=== PATIENT | female | born 1935 | race Caucasian/White ===

== ENCOUNTER 2017-02-10 18:27 | Inpatient (IN) ==
[2017-02-10] MEDS ORDERED: SODIUM CHLORIDE 0.9% 2,300 ML IV ONE (19:12)
[2017-02-10 20:35] LABS: Basophils % 0.3 % (0.0-0.8); Eosinophils # 0.1 10*3/uL (0.0-0.87); Eosinophils % 1.7 % (0.00-10.9); Hematocrit 27.8 VOL% (35.7-47.0); Immature Granulocytes % 0.9 %; Immature Granulocytes Absolute 0.05 #; Lymphocytes # 1.8 10*3/uL (1.4-4.0); Lymphocytes % 31.3 % (21.3-54.2); Mean Corpuscular HGB Conc 32.4 GM/DL (32-36); Mean Corpuscular Hemoglobin 33 PG (27-34); Mean Corpuscular Volume 101.8 FL (87-102); Mean Platelet Volume 9.4 FL (9.6-12.0); Monocytes # 0.6 10*3/uL (0.11-0.8); Monocytes % 10.5 % (1.7-12.7); NRBC # 0.02 10*3/uL; Neutrophils # 3.2 10*3/uL (1.4-7.4); Neutrophils % 55.3 % (38.7-73.9); Platelet Count 246 T/CUMM (130-400); Red Blood Count 2.73 MC/CUMM (3.8-5.5); Red Cell Distribution Width 13.3 % (9.3-17.3); White Blood Count 5.8 T/CUMM (4-12)
[2017-02-10 20:57] LABS: Alanine Aminotransferase < 9 U/L (13-56); Albumin 2.7 G/DL (3.4-5.0); Alkaline Phosphatase 96 U/L (45-117); Aspartate Amino Transferase 27 U/L (0-37); Blood Urea Nitrogen 65 MG/DL (7-18); Calcium 8.7 MG/DL (8.5-10.1); Glucose 112 MG/DL (74-106); Potassium 4.8 MMOL/L (3.5-5.1); Sodium 143 MMOL/L (136-145); Total Protein 6.4 G/DL (6.4-8.3)
[2017-02-10 21:02] LABS: Apearance,Urine CLEAR (Clear); Bacteria,Urine Few /HPF (Few); Bilirubin,Urine Negative (Negative); Blood, Urine Negative (Negative); Glucose,Urine (UA) Negative (Negative); Hyaline Casts,Urine 4 /LPF (0-3); Ketones,Urine Negative (Negative); Mucus,Urine Occasional /LPF (Occasional); Nitrite,Urine Negative (Negative); Protein,Urine Negative; Squamous Epithelial Cell,Urine Occasional /HPF (0-10); Urine Color Yellow (Yellow); Urine Specific Gravity 1.012 (1.001-1.035); Urine Urobilinogen < 2.0 EU/DL (0.2-1.0); WBC,Urine 1 /HPF (0-6)
[2017-02-10] MEDS ORDERED: DEXTROSE 50% 25 GM/50 ML VIAL IV PRN ×2 (21:46)
[2017-02-10] MEDS ORDERED: ONDANSETRON 4 MG/2 ML VIAL IV PRN (21:46)
[2017-02-10] MEDS ORDERED: GLUCAGON 1 MG VIAL IM PRN ×2 (21:46)
[2017-02-10] MEDS ORDERED: MAGNESIUM HYDROXIDE SUSP 30 ML UDCUP PO PRN (21:56)
[2017-02-10] MEDS ORDERED: LOPERAMIDE 2 MG CAPSULE PO PRN (21:56)
[2017-02-10] MEDS ORDERED: ACETAMINOPHEN 325 MG TABLET PO PRN (21:56)
[2017-02-10] MEDS ORDERED: LORazepam 1 MG TABLET PO PRN (21:56)
[2017-02-10] MEDS ORDERED: ALUMINUM/MAGNES/SIMETH MAX STR 30 ML UDCUP PO PRN (21:56)
[2017-02-10] MEDS ORDERED: ONDANSETRON 4 MG/2 ML VIAL ONE (22:20)
[2017-02-10] MEDS ORDERED: HYDROmorphone 2 MG/1 ML VIAL ONE (22:20)
[2017-02-10] MEDS: HYDROmorphone 2 MG/1 ML VIAL IV PRN (22:32)
[2017-02-10] MEDS: SODIUM CHLORIDE 0.9% 1,000 ML IV SCH (23:07)
[2017-02-10] MEDS: traZODone 50 MG TABLET PO SCH (23:13)
[2017-02-10] MEDS: DIVALPROEX SPRINKLE 125 MG CAPSULE PO SCH (23:14)
[2017-02-10] MEDS: OLANZapine 5 MG TABLET PO SCH (23:14)
[2017-02-10] MEDS: MIRTAZAPINE 30 MG TABLET PO SCH (23:14)
[2017-02-11 03:51] LABS: Basophils % 0.3 % (0.0-0.8); Eosinophils # 0.2 10*3/uL (0.0-0.87); Eosinophils % 2.4 % (0.00-10.9); Hematocrit 24.6 VOL% (35.7-47.0); Hemoglobin 7.8 GM/DL (12.0-16.0); Immature Granulocytes % 0.8 %; Immature Granulocytes Absolute 0.05 #; Lymphocytes # 2.2 10*3/uL (1.4-4.0); Lymphocytes % 34.7 % (21.3-54.2); Mean Corpuscular HGB Conc 31.7 GM/DL (32-36); Mean Corpuscular Hemoglobin 33 PG (27-34); Mean Corpuscular Volume 102.5 FL (87-102); Mean Platelet Volume 9.6 FL (9.6-12.0); Monocytes # 0.7 10*3/uL (0.11-0.8); Monocytes % 11.5 % (1.7-12.7); Neutrophils # 3.2 10*3/uL (1.4-7.4); Neutrophils % 50.3 % (38.7-73.9); Platelet Count 242 T/CUMM (130-400); Red Cell Distribution Width 13.2 % (9.3-17.3); White Blood Count 6.3 T/CUMM (4-12)
[2017-02-11 05:12] LABS: Calcium 8.1 MG/DL (8.5-10.1); Magnesium 2.2 MG/DL (1.8-2.4); Osmolality,Calculated 299.1 MOS/KG (273-304); Potassium 4.9 MMOL/L (3.5-5.1)
[2017-02-11] MEDS: INSULIN REGULAR 100 UNIT/ML SUBCUT SCH ×4 (08:30→20:25)
[2017-02-11] MEDS ORDERED: SODIUM CHLORIDE 0.9% 250 ML IV PRN (09:30)
[2017-02-11] MEDS: FOLIC ACID 1 MG TABLET PO SCH (10:30)
[2017-02-11] MEDS: FLUoxetine 20 MG CAPSULE PO SCH (10:30)
[2017-02-11] MEDS: cloNIDine 0.1 MG TABLET PO SCH ×2 (10:30→20:24)
[2017-02-11] MEDS: PANTOPRAZOLE 40 MG TABLET PO SCH (10:30)
[2017-02-11] MEDS: DOCUSATE SODIUM 100 MG CAPSULE PO SCH ×2 (10:30→20:21)
[2017-02-11] MEDS: CARBIDOPA/LEVODOPA 25-100 MG TABLET PO SCH ×3 (10:30→20:21)
[2017-02-11] MEDS: clonazePAM 0.5 MG TABLET PO SCH ×2 (10:30→20:28)
[2017-02-11] MEDS: traZODone 50 MG TABLET PO SCH ×2 (10:30→20:20)
[2017-02-11] MEDS: GABAPENTIN 100 MG CAPSULE PO SCH ×3 (10:30→20:21)
[2017-02-11] MEDS: MEMANTINE 10 MG TABLET PO SCH ×2 (10:30→20:21)
[2017-02-11] MEDS: EZETIMIBE 10 MG TABLET PO SCH (10:30)
[2017-02-11] MEDS: OLANZapine 5 MG TABLET PO SCH ×2 (10:30→20:21)
[2017-02-11] MEDS: METOPROLOL TARTRATE 50 MG TABLET PO SCH (16:36)
[2017-02-11] MEDS: SODIUM CHLORIDE 0.9% 1,000 ML IV SCH (18:00)
[2017-02-11] MEDS: MIRTAZAPINE 30 MG TABLET PO SCH (20:17)
[2017-02-11] MEDS: DIVALPROEX SPRINKLE 125 MG CAPSULE PO SCH (20:19)
[2017-02-11] MEDS: Doxepin Hcl [Silenor] 3 MG PO SCH (20:24)
[2017-02-11] MEDS: HYDROmorphone 2 MG/1 ML VIAL IV PRN (23:02)
[2017-02-12] MEDS: INSULIN REGULAR 100 UNIT/ML SUBCUT SCH ×4 (08:00→22:31)
[2017-02-12] MEDS: cloNIDine 0.1 MG TABLET PO SCH ×2 (10:50→22:29)
[2017-02-12] MEDS: clonazePAM 0.5 MG TABLET PO SCH ×2 (10:50→22:30)
[2017-02-12] MEDS: CARBIDOPA/LEVODOPA 25-100 MG TABLET PO SCH ×3 (10:50→22:29)
[2017-02-12] MEDS: MEMANTINE 10 MG TABLET PO SCH ×2 (10:50→22:30)
[2017-02-12] MEDS: OLANZapine 5 MG TABLET PO SCH ×2 (10:50→22:29)
[2017-02-12] MEDS: EZETIMIBE 10 MG TABLET PO SCH (10:50)
[2017-02-12] MEDS: PANTOPRAZOLE 40 MG TABLET PO SCH (10:50)
[2017-02-12] MEDS: traZODone 50 MG TABLET PO SCH ×2 (10:50→22:30)
[2017-02-12] MEDS: FLUoxetine 20 MG CAPSULE PO SCH (10:50)
[2017-02-12] MEDS: DOCUSATE SODIUM 100 MG CAPSULE PO SCH ×2 (10:50→22:30)
[2017-02-12] MEDS: FOLIC ACID 1 MG TABLET PO SCH (10:50)
[2017-02-12] MEDS: GABAPENTIN 100 MG CAPSULE PO SCH ×3 (10:50→22:29)
[2017-02-12 13:07] LABS: Basophils % 0.3 % (0.0-0.8); Eosinophils # 0.1 10*3/uL (0.0-0.87); Eosinophils % 1.6 % (0.00-10.9); Hematocrit 32.4 VOL% (35.7-47.0); Immature Granulocytes % 0.7 %; Immature Granulocytes Absolute 0.05 #; Lymphocytes % 26.8 % (21.3-54.2); Mean Corpuscular HGB Conc 33.6 GM/DL (32-36); Mean Corpuscular Hemoglobin 31 PG (27-34); Mean Corpuscular Volume 92.8 FL (87-102); Mean Platelet Volume 9.4 FL (9.6-12.0); Monocytes # 0.6 10*3/uL (0.11-0.8); Monocytes % 7.6 % (1.7-12.7); Neutrophils # 4.6 10*3/uL (1.4-7.4); Platelet Count 237 T/CUMM (130-400); Red Cell Distribution Width 18.4 % (9.3-17.3); White Blood Count 7.3 T/CUMM (4-12)
[2017-02-12 13:08] LABS: Hemoglobin 10.9 GM/DL (12.0-16.0)
[2017-02-12 13:10] LABS: Red Blood Count 3.49 MC/CUMM (3.8-5.5)
[2017-02-12 13:42] LABS: Calcium 8.8 MG/DL (8.5-10.1); Osmolality,Calculated 292.1 MOS/KG (273-304); Potassium 4.6 MMOL/L (3.5-5.1)
[2017-02-12] MEDS: METOPROLOL TARTRATE 50 MG TABLET PO SCH (14:24)
[2017-02-12] MEDS: HYDROmorphone 2 MG/1 ML VIAL IV PRN (15:28)
[2017-02-12] MEDS: LORazepam 2 MG/1 ML VIAL IV PRN (18:47)
[2017-02-12] MEDS: DIVALPROEX SPRINKLE 125 MG CAPSULE PO SCH (22:29)
[2017-02-12] MEDS: Doxepin Hcl [Silenor] 3 MG PO SCH (22:31)
[2017-02-13] MEDS: MIRTAZAPINE 30 MG TABLET PO SCH ×2 (01:19→22:15)
[2017-02-13] MEDS: HYDROmorphone 2 MG/1 ML VIAL IV PRN ×2 (01:36→17:15)
[2017-02-13 05:32] LABS: Basophils % 0.2 % (0.0-0.8); Eosinophils # 0.2 10*3/uL (0.0-0.87); Eosinophils % 3.3 % (0.00-10.9); Hematocrit 30.3 VOL% (35.7-47.0); Hemoglobin 9.8 GM/DL (12.0-16.0); Immature Granulocytes % 0.9 %; Immature Granulocytes Absolute 0.06 #; Lymphocytes # 2.4 10*3/uL (1.4-4.0); Mean Corpuscular HGB Conc 32.3 GM/DL (32-36); Mean Corpuscular Hemoglobin 31 PG (27-34); Mean Corpuscular Volume 94.4 FL (87-102); Mean Platelet Volume 9.7 FL (9.6-12.0); Monocytes # 0.6 10*3/uL (0.11-0.8); Monocytes % 8.7 % (1.7-12.7); Neutrophils # 3.4 10*3/uL (1.4-7.4); Neutrophils % 50.9 % (38.7-73.9); Platelet Count 240 T/CUMM (130-400); Red Blood Count 3.21 MC/CUMM (3.8-5.5); Red Cell Distribution Width 17.3 % (9.3-17.3); White Blood Count 6.6 T/CUMM (4-12)
[2017-02-13 05:57] LABS: Calcium 8.7 MG/DL (8.5-10.1); Osmolality,Calculated 288.4 MOS/KG (273-304); Potassium 4.8 MMOL/L (3.5-5.1)
[2017-02-13] MEDS: INSULIN REGULAR 100 UNIT/ML SUBCUT SCH ×3 (07:30→22:15)
[2017-02-13] MEDS: OLANZapine 5 MG TABLET PO SCH ×2 (09:30→22:15)
[2017-02-13] MEDS: PANTOPRAZOLE 40 MG TABLET PO SCH (09:30)
[2017-02-13] MEDS: DOCUSATE SODIUM 100 MG CAPSULE PO SCH ×2 (09:31→22:14)
[2017-02-13] MEDS: FOLIC ACID 1 MG TABLET PO SCH (09:31)
[2017-02-13] MEDS: CARBIDOPA/LEVODOPA 25-100 MG TABLET PO SCH ×3 (09:32→22:15)
[2017-02-13] MEDS: traZODone 50 MG TABLET PO SCH ×2 (09:32→22:14)
[2017-02-13] MEDS: MEMANTINE 10 MG TABLET PO SCH ×2 (09:33→22:15)
[2017-02-13] MEDS: EZETIMIBE 10 MG TABLET PO SCH (09:33)
[2017-02-13] MEDS: GABAPENTIN 100 MG CAPSULE PO SCH ×3 (09:34→22:15)
[2017-02-13] MEDS: FLUoxetine 20 MG CAPSULE PO SCH (09:34)
[2017-02-13] MEDS: clonazePAM 0.5 MG TABLET PO SCH ×2 (09:34→22:15)
[2017-02-13] MEDS: cloNIDine 0.1 MG TABLET PO SCH ×2 (09:37→22:14)
[2017-02-13] MEDS: METOPROLOL TARTRATE 50 MG TABLET PO SCH (09:37)
[2017-02-13] MEDS: LORazepam 2 MG/1 ML VIAL IV PRN (13:07)
[2017-02-13] MEDS: DIVALPROEX SPRINKLE 125 MG CAPSULE PO SCH (22:14)
[2017-02-13] MEDS: Doxepin Hcl [Silenor] 3 MG PO SCH (22:14)
[2017-02-14] MEDS: INSULIN REGULAR 100 UNIT/ML SUBCUT SCH ×4 (09:42→22:02)
[2017-02-14] MEDS: EZETIMIBE 10 MG TABLET PO SCH (11:16)
[2017-02-14] MEDS: traZODone 50 MG TABLET PO SCH ×2 (11:17→22:10)
[2017-02-14] MEDS: OLANZapine 5 MG TABLET PO SCH ×2 (11:18→22:19)
[2017-02-14] MEDS: FOLIC ACID 1 MG TABLET PO SCH (11:18)
[2017-02-14] MEDS: MEMANTINE 10 MG TABLET PO SCH ×2 (11:18→22:10)
[2017-02-14] MEDS: clonazePAM 0.5 MG TABLET PO SCH ×2 (11:20→22:13)
[2017-02-14] MEDS: DOCUSATE SODIUM 100 MG CAPSULE PO SCH ×2 (11:20→22:14)
[2017-02-14] MEDS: CARBIDOPA/LEVODOPA 25-100 MG TABLET PO SCH ×3 (11:20→22:27)
[2017-02-14] MEDS: PANTOPRAZOLE 40 MG TABLET PO SCH (11:22)
[2017-02-14] MEDS: FLUoxetine 20 MG CAPSULE PO SCH (11:22)
[2017-02-14] MEDS: GABAPENTIN 100 MG CAPSULE PO SCH ×3 (11:22→22:12)
[2017-02-14] MEDS: METOPROLOL TARTRATE 50 MG TABLET PO SCH ×2 (11:23→15:02)
[2017-02-14] MEDS: cloNIDine 0.1 MG TABLET PO SCH ×3 (11:24→22:22)
[2017-02-14] MEDS: HYDROmorphone 2 MG/1 ML VIAL IV PRN ×2 (14:13→23:17)
[2017-02-14] MEDS: Doxepin Hcl [Silenor] 3 MG PO SCH (22:14)
[2017-02-14] MEDS: MIRTAZAPINE 30 MG TABLET PO SCH (22:14)
[2017-02-14] MEDS: DIVALPROEX SPRINKLE 125 MG CAPSULE PO SCH (22:24)
[2017-02-15] MEDS: INSULIN REGULAR 100 UNIT/ML SUBCUT SCH ×4 (08:52→21:12)
[2017-02-15] MEDS: PANTOPRAZOLE 40 MG TABLET PO SCH (14:28)
[2017-02-15] MEDS: clonazePAM 0.5 MG TABLET PO SCH ×2 (14:28→21:42)
[2017-02-15] MEDS: MEMANTINE 10 MG TABLET PO SCH ×2 (14:28→21:42)
[2017-02-15] MEDS: cloNIDine 0.1 MG TABLET PO SCH ×2 (14:28→21:43)
[2017-02-15] MEDS: GABAPENTIN 100 MG CAPSULE PO SCH ×3 (14:28→21:43)
[2017-02-15] MEDS: METOPROLOL TARTRATE 50 MG TABLET PO SCH (14:28)
[2017-02-15] MEDS: traZODone 50 MG TABLET PO SCH ×2 (14:28→21:43)
[2017-02-15] MEDS: FOLIC ACID 1 MG TABLET PO SCH (14:28)
[2017-02-15] MEDS: DOCUSATE SODIUM 100 MG CAPSULE PO SCH ×2 (14:28→21:43)
[2017-02-15] MEDS: CARBIDOPA/LEVODOPA 25-100 MG TABLET PO SCH ×3 (14:29→21:42)
[2017-02-15] MEDS: EZETIMIBE 10 MG TABLET PO SCH (14:29)
[2017-02-15] MEDS: OLANZapine 5 MG TABLET PO SCH ×2 (14:29→21:43)
[2017-02-15] MEDS: FLUoxetine 20 MG CAPSULE PO SCH (14:29)
[2017-02-15] MEDS: DIVALPROEX SPRINKLE 125 MG CAPSULE PO SCH (21:42)
[2017-02-15] MEDS: MIRTAZAPINE 30 MG TABLET PO SCH (21:43)
[2017-02-15] MEDS: Doxepin Hcl [Silenor] 3 MG PO SCH (21:43)
[2017-02-15] MEDS: LORazepam 2 MG/1 ML VIAL IV PRN (21:45)
[2017-02-16] MEDS: HYDROmorphone 2 MG/1 ML VIAL IV PRN (00:59)
[2017-02-16] MEDS: INSULIN REGULAR 100 UNIT/ML SUBCUT SCH ×3 (07:59→17:31)
[2017-02-16] MEDS ORDERED: TUBERCULIN SKIN TEST 0.1 ML SYRINGE INTRADERM ONE (09:55)
[2017-02-16] MEDS: DOCUSATE SODIUM 100 MG CAPSULE PO SCH (11:01)
[2017-02-16] MEDS: FOLIC ACID 1 MG TABLET PO SCH (11:01)
[2017-02-16] MEDS: traZODone 50 MG TABLET PO SCH (11:01)
[2017-02-16] MEDS: cloNIDine 0.1 MG TABLET PO SCH (11:01)
[2017-02-16] MEDS: clonazePAM 0.5 MG TABLET PO SCH (11:02)
[2017-02-16] MEDS: METOPROLOL TARTRATE 50 MG TABLET PO SCH (11:02)
[2017-02-16] MEDS: MEMANTINE 10 MG TABLET PO SCH (11:02)
[2017-02-16] MEDS: EZETIMIBE 10 MG TABLET PO SCH (11:03)
[2017-02-16] MEDS: FLUoxetine 20 MG CAPSULE PO SCH (11:03)
[2017-02-16] MEDS: PANTOPRAZOLE 40 MG TABLET PO SCH (11:03)
[2017-02-16] MEDS: CARBIDOPA/LEVODOPA 25-100 MG TABLET PO SCH ×2 (11:03→17:30)
[2017-02-16] MEDS: GABAPENTIN 100 MG CAPSULE PO SCH ×2 (11:03→17:31)
[2017-02-16] MEDS: OLANZapine 5 MG TABLET PO SCH (11:04)
[2017-02-16 16:37] VITALS: BP 110/62
== END 2017-02-16 18:10 | DRG 536 ==
LOC: EDBD → EDUNIT# → N.ED 18:27 → N.EDINP 21:53 → SUATTDRO 21:53 → N.3E 22:42
PROVIDERS: ADMIT Internal Medicine; ATTEND Internal Medicine